=== PATIENT | male | born 1975 | race Caucasian/White ===

== ENCOUNTER 2016-10-16 12:25 | Emergency (ER) | payer BC ==
[~2016-10-16] VITALS: Ht 177.8 cm; Wt 93.2 kg
[2016-10-16 12:27] VITALS: BP 153/106; PULSE 93; TEMP 98.4
[2016-10-16] MEDS ORDERED: PRIL40 PO (12:43)
[2016-10-16 13:12] LABS: PH 5 (5-8); SQUAMOUS EPITHELIAL None Seen /hpf; URINE APPEARANCE Clear; URINE BACTERIA None Seen /hpf; URINE BILIRUBIN Negative (NEGATIVE); URINE BLOOD Negative (NEGATIVE); URINE COLOR Yellow; URINE GLUCOSE Negative (NEGATIVE); URINE KETONE Negative (NEGATIVE); URINE RBC 0-2 /hpf; URINE UROBILINOGEN Negative (NEGATIVE); URINE WBC 0-2 /hpf
[2016-10-16 13:23] LABS: BASO % 0.4 % (0.0-2.0); EOS # 0.1 (0.0-0.7); EOS % 1.2 % (0-4.0); GRAN # 7.3 (1.4-6.5); GRAN % 76.1 % (42.2-75.2); HEMATOCRIT 41.2 % (42.0-52.0); HEMOGLOBIN 14.1 g/dl (13.5-18.0); LYMPH # 1.2 (1.2-3.4); LYMPH % 12.6 % (20.0-51.0); MEAN CELL VOLUME 84 fl (80.0-100.0); MEAN CORPUSCULAR HEMOGLOBIN 29 pg (27.0-31.0); MEAN CORPUSCULAR HGB CONC 34 g/dl (33.0-37.0); MEAN PLATELET VOLUME 9.7 fl (7.4-10.4); MONO # 0.9 (0.1-0.6); MONO % 9.4 % (1.7-9.3); PLATELET COUNT 183 K/mm3 (130-400); RED BLOOD COUNT 4.91 M/mm3 (4.20-5.60); WHITE BLOOD COUNT 9.7 K/mm3 (4.8-10.8)
[2016-10-16 13:35] LABS: ADJUSTED CALCIUM 8.9 mg/dL (8.4-10.2); ALBUMIN 4.4 gm/dL (3.5-5.0); BILIRUBIN,TOTAL 1.1 mg/dL (0.0-1.0); C-REACTIVE PROTEIN 5.5 mg/dL (0.0-0.9); CALCIUM 9.2 mg/dL (8.4-10.2); CREATININE, serum 1.07 mg/dL (0.66-1.25); POTASSIUM 4.5 mmol/L (3.4-5.0); TOTAL PROTEIN 7.6 gm/dL (6.4-8.2)
[2016-10-16] MEDS ORDERED: VOLTAREN 75 DR75 MG PO (13:57)
[2016-10-16] MEDS ORDERED: CIPRO 500MG TA500 MG PO (13:57)
== END 2016-10-16 14:15 | disposition home or self-care (01) ==
LOC: COL.ER 12:25
PROVIDERS: Family Medicine
DX: N41.0 Acute prostatitis (principal); Z85.71 Personal history of Hodgkin lymphoma; K21.9 Gastro-esophageal reflux disease without esophagitis

== ENCOUNTER 2018-05-07 14:01 | Emergency (ER) | payer BC ==
[~2018-05-07] VITALS: Ht 177.8 cm; Wt 95.5 kg
[~2018-05-07 14:01] MED LIST: CIPRO 500MG TA500 MG PO; PRIL40 PO; VOLTAREN 75 DR75 MG PO
[2018-05-07 14:04] VITALS: TEMP 98.1
[2018-05-07 14:31] LABS: BASO % 0.1 % (0.0-2.0); EOS % 0.2 % (0-4.0); GRAN # 8.6 (1.4-6.5); GRAN % 91.9 % (42.2-75.2); HEMATOCRIT 48.7 % (42.0-52.0); HEMOGLOBIN 16.6 g/dl (13.5-18.0); LYMPH # 0.3 (1.2-3.4); LYMPH % 3.6 % (20.0-51.0); MEAN CELL VOLUME 82 fl (80.0-100.0); MEAN CORPUSCULAR HEMOGLOBIN 28 pg (27.0-31.0); MEAN CORPUSCULAR HGB CONC 34 g/dl (33.0-37.0); MEAN PLATELET VOLUME 10.2 fl (7.4-10.4); MONO # 0.4 (0.1-0.6); MONO % 3.8 % (1.7-9.3); PLATELET COUNT 268 K/mm3 (130-400); RED BLOOD COUNT 5.96 M/mm3 (4.20-5.60); REDCELL DISTRIBUTION WIDTH-CV 13.4 % (11.5-14.5)
[2018-05-07 14:43] LABS: ALBUMIN 4.9 gm/dL (3.5-5.0); BILIRUBIN,TOTAL 0.9 mg/dL (0.0-1.0); C-REACTIVE PROTEIN 3.5 mg/dL (0.0-0.9); CREATININE, serum 1.15 mg/dL (0.66-1.25); POTASSIUM 4.3 mmol/L (3.4-5.0); TOTAL PROTEIN 8.6 gm/dL (6.4-8.2)
[2018-05-07] MEDS ORDERED: ZOFRAN ODT4 MG PO (16:01)
[2018-05-07 16:26] VITALS: BP 140/82; PULSE 88
== END 2018-05-07 16:27 | disposition home or self-care (01) ==
LOC: COL.ER 14:01
PROVIDERS: Family Medicine
DX: K52.9 Noninfective gastroenteritis and colitis, unspecified (principal); K21.9 Gastro-esophageal reflux disease without esophagitis
CPT/HCPCS: C9113; J1885; J2405; J2765; J7030

== ENCOUNTER 2020-04-09 02:23 | Emergency (ER) | payer BC ==
[~2020-04-09] VITALS: Ht 177.8 cm; Wt 84.1 kg
[~2020-04-09 02:23] MED LIST changes: +ZOFRAN ODT4 MG PO
[2020-04-09 02:25] VITALS: TEMP 97.6
[2020-04-09 02:53] LABS: COLLECTION METHOD CLEAN CATCH
[2020-04-09] MEDS ORDERED: NORVASC 5MG5 MG/TAB PO (03:00)
[2020-04-09] MEDS ORDERED: PRILOSEC 20MG20 MG PO (03:00)
[2020-04-09] MEDS ORDERED: AMBIEN 5MG TABLE5 MG PO (03:00)
[2020-04-09 03:01] LABS: MUCOUS Present /lpf; PH 6 (5-8); SQUAMOUS EPITHELIAL 0-2 /hpf; URINE APPEARANCE Cloudy; URINE BACTERIA Rare /hpf; URINE BILIRUBIN Negative (NEGATIVE); URINE BLOOD 3+ (NEGATIVE); URINE COLOR Red; URINE GLUCOSE Negative (NEGATIVE); URINE KETONE Negative (NEGATIVE); URINE LEUKOCYTE ESTERASE Negative (NEGATIVE); URINE NITRATE Negative (NEGATIVE); URINE PROTEIN(semi-quant) 2+ (NEGATIVE); URINE RBC >50 /hpf; URINE UROBILINOGEN Negative (NEGATIVE)
[2020-04-09 04:06] VITALS: BP 147/93; PULSE 78
== END 2020-04-09 04:19 | disposition home or self-care (01) ==
LOC: COL.ER 02:23
PROVIDERS: Emergency Medicine
DX: C64.1 Malignant neoplasm of right kidney, except renal pelvis (principal); N13.8 Other obstructive and reflux uropathy; Z85.71 Personal history of Hodgkin lymphoma
CPT/HCPCS: A4314; J2270; J2550

== ENCOUNTER → 2020-07-26 | Outpatient (CLI) | payer BC ==
[~2020-07-26] MED LIST changes: +AMBIEN 5MG TABLE5 MG PO; +NORVASC 5MG5 MG/TAB PO; +PRILOSEC 20MG20 MG PO
== END ==
LOC: COL.VAS
DX: Z51.11 Encounter for antineoplastic chemotherapy (principal); C64.1 Malignant neoplasm of right kidney, except renal pelvis

== ENCOUNTER → 2022-07-02 | Outpatient (CLI) | payer BC | LOC: COL.RAD 11:22 | DX: R50.9 Fever, unspecified (principal); R51.9 Headache, unspecified; H57.89 Other specified disorders of eye and adnexa ==

== ENCOUNTER 2022-08-12 13:02 | Emergency (ER) | payer BC ==
[~2022-08-12] VITALS: Ht 177.8 cm; Wt 82.7 kg
[2022-08-12 13:19] VITALS: TEMP 98.7
[2022-08-12 15:11] LABS: BASO # 0.1 K/mm3 (0.0-0.2); BASO % 0.7 % (0.0-2.0); EOS # 0.2 K/mm3 (0.0-0.7); GRAN # 7.1 K/mm3 (1.4-6.5); GRAN % 82.4 % (42.2-75.2); HEMATOCRIT 38.7 % (42.0-52.0); HEMOGLOBIN 13.2 g/dl (13.5-18.0); LYMPH # 0.7 K/mm3 (1.2-3.4); LYMPH % 8.2 % (20.0-51.0); MEAN CELL VOLUME 84 fl (80.0-100.0); MEAN CORPUSCULAR HEMOGLOBIN 29 pg (27-31); MEAN CORPUSCULAR HGB CONC 34 g/dl (33.0-37.0); MEAN PLATELET VOLUME 9.2 fl (7.4-10.4); MONO # 0.6 K/mm3 (0.1-0.6); MONO % 6.4 % (1.7-9.3); PLATELET COUNT 287 K/mm3 (130-400); REDCELL DISTRIBUTION WIDTH-CV 14.2 % (11.5-14.5)
[2022-08-12 15:27] LABS: ALBUMIN 4.1 gm/dL (3.5-5.0); BILIRUBIN,TOTAL 0.4 mg/dL (0.2-1.2); CALCIUM 9.5 mg/dL (8.4-10.2); CREATININE, serum 1.35 mg/dL (0.72-1.25); POTASSIUM 4.3 mmol/L (3.5-4.5); TOTAL PROTEIN 8.1 gm/dL (6.2-8.1)
[2022-08-12 18:15] VITALS: BP 133/97; PULSE 92
== END 2022-08-12 18:15 | disposition home or self-care (01) ==
LOC: COL.ER 13:02
PROVIDERS: Physician Assistant
DX: G89.3 Neoplasm related pain (acute) (chronic) (principal); C64.2 Malignant neoplasm of left kidney, except renal pelvis; C79.51 Secondary malignant neoplasm of bone
CPT/HCPCS: J1170; J2060; J2270

== ENCOUNTER 2023-05-14 21:02 | Emergency (ER) | payer BC ==
[~2023-05-14] VITALS: Ht 177.8 cm; Wt 80.5 kg
[~2023-05-14 21:02] MED LIST changes: +ATIVAN 0.50.5 MG/TAB PO; +CELEBREX 200MG200 MG PO; +CREON 36000 PO; +DILAUDID 2MG TAB2 MG PO; +LYRICA 25MG CAP25 MG PO; +NORVASC 10MG10 MG PO; +OYSTER SHELL CA1 TA6 PO; -PRILOSEC 20MG20 MG PO; +SLOW-MAG71.5 MG PO; +SYNTHROID0.2 MG/TAB PO; +ZANAFLEX CAPSULE4 MG PO; +ZESTRIL 20MG TA20 MG PO
[2023-05-14 21:14] VITALS: TEMP 98.3
[2023-05-14 21:58] LABS: MEAN CELL VOLUME 94 fl (80.0-100.0); MEAN CORPUSCULAR HGB CONC 31 g/dl (33.0-37.0); MEAN PLATELET VOLUME 9.1 fl (7.4-10.4); PLATELET COUNT 292 K/mm3 (130-400); RED BLOOD COUNT 2.97 M/mm3 (4.20-5.60); REDCELL DISTRIBUTION WIDTH-CV 15.7 % (11.5-14.5)
[2023-05-14 22:10] LABS: ALANINE AMINOTRANSFERASE 57 U/L (0-55); ALBUMIN 2.4 gm/dL (3.5-5.0); ALKALINE PHOSPHATASE 425 U/L (40-150); ANION GAP 10 mmol/L (7-16); AST,SGOT 34 U/L (5-34); BILIRUBIN,TOTAL 0.5 mg/dL (0.2-1.2); BLOOD UREA NITROGEN 15 mg/dL (9-21); CALCIUM 9.3 mg/dL (8.4-10.2); CARBON DIOXIDE 20 mmol/L (22-29); CHLORIDE 105 mmol/L (98-107); CREATININE, serum 1.36 mg/dL (0.72-1.25); GLUCOSE 195 mg/dL (70-99); POTASSIUM 4.5 mmol/L (3.5-4.5); SODIUM 135 mmol/L (136-145); TOTAL PROTEIN 6.5 gm/dL (6.2-8.1)
[2023-05-14 22:16] LABS: HEMATOCRIT 27.8 % (42.0-52.0); HEMOGLOBIN 8.7 g/dl (13.5-18.0); MEAN CORPUSCULAR HEMOGLOBIN 29 pg (27-31)
[2023-05-14 22:23] LABS: TROPONIN-I < 0.010 ng/mL (0.00-0.033)
[2023-05-14 22:45] LABS: BAND 5 % (0-10); EOSINOPHIL 1 % (0-4); LYMPHOCYTE 8 % (20.0-51.0); METAMYELOCYTE 1 % (0-0); NEUTROPHILS 80 % (42.0-75.2)
[2023-05-14 22:46] LABS: PLATELET ESTIMATE NORMAL (NORMAL)
[2023-05-14 23:44] LABS: COLLECTION METHOD CLEAN CATCH
[2023-05-14 23:59] LABS: SQUAMOUS EPITHELIAL None Seen /hpf (0-10); URINE APPEARANCE Clear (CLEAR/HAZY); URINE BLOOD Negative (NEGATIVE); URINE COLOR Yellow (YELLOW); URINE GLUCOSE Negative (NEGATIVE); URINE KETONE Negative (NEGATIVE); URINE NITRATE Negative (NEGATIVE); URINE PROTEIN(semi-quant) Negative (NEGATIVE); URINE RBC None Seen /hpf (0-2); URINE UROBILINOGEN 0.2 E.U/dL (0.2-1.0)
[2023-05-15] LABS: URINE BACTERIA None Seen /hpf (NONE SEEN)
[2023-05-15] MEDS ORDERED: CYMBALTA 30MG30 MG PO (00:40)
[2023-05-15] MEDS ORDERED: FLOMAX 0.40.4 MG/CAP PO (00:40)
[2023-05-15] MEDS ORDERED: LEVAQUIN 750MG750 M1 PO (00:41)
[2023-05-15] MEDS ORDERED: XIIDRA1 EACH OP (00:48)
[2023-05-15] MEDS ORDERED: CABOMETYX40 MG PO (00:48)
[2023-05-15] MEDS ORDERED: ATIVAN 0.50.5 MG/TAB PO (00:49)
[2023-05-15] MEDS ORDERED: SENNA-S 50 MG-81 TAB PO (00:50)
[2023-05-15] MEDS ORDERED: ZYPREXA 5MG5 MG PO (00:50)
[2023-05-15] MEDS ORDERED: DILAUDID 2MG TAB2 MG PO (00:51)
[2023-05-15] MEDS ORDERED: PROCTOZONE-HC2.5% RC (00:54)
[2023-05-15] MEDS ORDERED: MIRALAX PA17 GM/Dose PO (00:58)
[2023-05-15] MEDS ORDERED: NYSTATIN POWDER30 GM TOP (00:58)
[2023-05-15] MEDS ORDERED: PRIL40 PO (00:58)
[2023-05-15] MEDS ORDERED: SLOW-MAG71.5 MG PO (00:59)
[2023-05-15] MEDS ORDERED: ZANAFLEX CAPSULE2 MG PO (01:00)
[2023-05-15 03:03] VITALS: BP 106/77; PULSE 112
== END 2023-05-15 03:03 | disposition home or self-care (01) ==
LOC: COL.ER 21:02
PROVIDERS: Emergency Medicine
DX: D64.9 Anemia, unspecified (principal); C64.9 Malignant neoplasm of unspecified kidney, except renal pelvis; Z79.61 Long term (current) use of immunomodulator
CPT/HCPCS: J2543; J3010; J7030; Q9967

== ENCOUNTER 2023-06-13 09:25 | Inpatient (IN) | payer BC ==
[2023-06-13] VITALS (419 sets, daily range): BP systolic 128; BP diastolic 79; PULSE 99; TEMP 97.7; O2SAT 79–100
[~2023-06-13] VITALS: Ht 177.8 cm; Wt 81.2 kg
[~2023-06-13 09:25] MED LIST changes: +CABOMETYX40 MG PO; +CYMBALTA 30MG30 MG PO; +FLOMAX 0.40.4 MG/CAP PO; +LEVAQUIN 750MG750 M1 PO; +MIRALAX PA17 GM/Dose PO; +NYSTATIN POWDER30 GM TOP; +PROCTOZONE-HC2.5% RC; +SENNA-S 50 MG-81 TAB PO; +XIIDRA1 EACH OP; +ZANAFLEX CAPSULE2 MG PO; +ZYPREXA 5MG5 MG PO
[2023-06-13] MEDS ORDERED: Heparin 5,000 UNITS/ML 1 ML VIAL SQ SCH (16:00)
--- NOTE | 2023-06-13 16:00 | NUR ---
Report received this morning from TRISTAN Tyson at [facility]. Patient arrived by EMS transport accompanied by the flight crew from [place]. Patient arrived to the unit alert and oriented, on oxygen running at 4 lpm via NS, and stable. Vital signs within normal limits. Patient had no fluids or meds running through his right upper arm PICC, which is a triple lumen that was placed at [facility]. Dr. Dumont notified of patient's arrival.
[2023-06-13 16:13] LABS: MEAN CELL VOLUME 84 fl (80.0-100.0); MEAN CORPUSCULAR HGB CONC 32 g/dl (33.0-37.0); MEAN PLATELET VOLUME 8.5 fl (7.4-10.4); PLATELET COUNT 438 K/mm3 (130-400); RED BLOOD COUNT 2.83 M/mm3 (4.20-5.60); REDCELL DISTRIBUTION WIDTH-CV 17.6 % (11.5-14.5)
[2023-06-13 16:16] LABS: HEMATOCRIT 23.8 % (42.0-52.0); HEMOGLOBIN 7.7 g/dl (13.5-18.0); MEAN CORPUSCULAR HEMOGLOBIN 27 pg (27-31)
[2023-06-13 16:20] LABS: INR 1.4 (0.8-3.0); PROTHROMBIN TIME 15.2 SECONDS (9.7-12.8)
[2023-06-13 16:35] LABS: ALBUMIN 2.1 gm/dL (3.5-5.0); BILIRUBIN,TOTAL 0.3 mg/dL (0.2-1.2); CALCIUM 8.7 mg/dL (8.4-10.2); CREATININE, serum 1.02 mg/dL (0.72-1.25); POTASSIUM 3.8 mmol/L (3.5-4.5); TOTAL PROTEIN 6.1 gm/dL (6.2-8.1)
[2023-06-13] MEDS ORDERED: HYDROmorphone 0.5 MG/0.5 ML SYRINGE IV PRN (16:45)
[2023-06-13] MEDS ORDERED: Insulin Aspart (NovoLOG) SQ SCH (16:57)
[2023-06-13] MEDS ORDERED: Cefepime 1 G in Water For Injection,Sterile 10 ML IV SCH (17:00)
[2023-06-13] MEDS ORDERED: Amiodarone 200 MG TAB PO SCH (17:30)
[2023-06-13] MEDS ORDERED: Glucagon 1 MG VIAL IM PRN (18:00)
[2023-06-13] MEDS ORDERED: Dextrose 50% Water 25 GM/50 ML SYRINGE IV PRN (18:00)
[2023-06-13] MEDS ORDERED: Dextrose (Glucose) 15 GM (4 x 3.75 GM) Chewable TABLET PACK PO PRN (18:00)
[2023-06-13] MEDS ORDERED: Albuterol/Ipratropium 3 MG-0.5 MG/3 ML Neb Soln IH PRN (19:15)
[2023-06-13] MEDS ORDERED: Albuterol/Ipratropium 3 MG-0.5 MG/3 ML Neb Soln IH SCH (20:00)
[2023-06-13] MEDS ORDERED: Methadone 10 MG TAB PO SCH (21:00)
[2023-06-13] MEDS ORDERED: OLANZapine 5 MG TAB PO SCH (21:55)
[2023-06-14] VITALS (236 sets, daily range): BP systolic 124–143; BP diastolic 75–90; PULSE 85–114; TEMP 97.4–98.2; O2SAT 89–98
[2023-06-14 05:35] LABS: MEAN CELL VOLUME 86 fl (80.0-100.0); MEAN CORPUSCULAR HGB CONC 31 g/dl (33.0-37.0); MEAN PLATELET VOLUME 8.9 fl (7.4-10.4); PLATELET COUNT 397 K/mm3 (130-400); RED BLOOD COUNT 2.78 M/mm3 (4.20-5.60); REDCELL DISTRIBUTION WIDTH-CV 17.9 % (11.5-14.5)
[2023-06-14 05:38] LABS: HEMATOCRIT 23.8 % (42.0-52.0); HEMOGLOBIN 7.3 g/dl (13.5-18.0); MEAN CORPUSCULAR HEMOGLOBIN 26 pg (27-31)
[2023-06-14 05:50] LABS: CALCIUM 9.2 mg/dL (8.4-10.2); CREATININE, serum 1.01 mg/dL (0.72-1.25); MAGNESIUM 2.2 mg/dL (1.6-2.6); PHOSPHOROUS 2.7 mg/dL (2.3-4.7); POTASSIUM 4.7 mmol/L (3.5-4.5)
[2023-06-14 06:24] LABS: ANISOCYTOSIS 2+; BAND 9 % (0-10); HYPOCHROMIA 1+; LYMPHOCYTE 2 % (20.0-51.0); NEUTROPHILS 85 % (42.0-75.2); PLATELET ESTIMATE NORMAL (NORMAL)
[2023-06-14] MEDS ORDERED: Hydrocortisone 2.5% Cream 28.35 GM TUBE TOP SCH (10:26)
[2023-06-14] MEDS ORDERED: Polyethylene Glycol 3350 17 GM PDS PO SCH (10:26)
[2023-06-14] MEDS ORDERED: Nystatin Powder **** subs to Miconazole Powder TOP SCH (10:26)
[2023-06-14] MEDS ORDERED: Sennosides/Docusate 8.6-50 MG TAB PO SCH (10:27)
[2023-06-14] MEDS ORDERED: Calcium Carb/Vit D3 500 mg-200 Units TAB PO SCH (10:28)
[2023-06-14] MEDS ORDERED: DULoxetine 30 MG CAP PO SCH (10:28)
[2023-06-14] MEDS ORDERED: Omeprazole 40 MG **** subs to Pantoprazole 40 MG PO SCH (10:29)
[2023-06-14] MEDS ORDERED: LORazepam 0.5 MG TAB PO PRN (10:30)
[2023-06-14] MEDS ORDERED: Albuterol/Ipratropium 3 MG-0.5 MG/3 ML Neb Soln IH PRN (10:45)
[2023-06-14] MEDS ORDERED: Miconazole 2% Topical Powder BOTTLE TP SCH (11:00)
[2023-06-14] MEDS ORDERED: fentaNYL 12 MCG 72 HR PATCH TD SCH (11:00)
--- NOTE | 2023-06-14 11:26 | NUR ---
adz worker met with pt daughter, and son at bedside to discuss discharge planning. Pt reports he lives in [place] with his , Brendan/DPOA- [phone]. Pt states his can bring in a copy of the DPOA from home. Pt confirms he sees Dr. Sloan [facility]. Pt reports prior to the recent hospitalizations, he was independent with ADLS and uses home oxygen. He was unsure of the oxygen company, but thinks it is [facility]. Pt states he would be agreeable to reccomendations of rehab. He reports he has used [facility] in the past, but did not get seen often by them due to medical changes. Discharge Plan: tbd
[2023-06-14] MEDS ORDERED: Pancrelipase DR CAP (10,500 Units Lipase) PO SCH (12:00)
--- NOTE | 2023-06-14 12:30 | NUR ---
Patient transfered to the medical floor via wheelchair. Alert and oriented and in no distress upon arrival. Met with BRAZING MACHINE TENDER in room and notified receiving RN of arrival. Call light left within reach.
[2023-06-14] MEDS ORDERED: Albuterol/Ipratropium 3 MG-0.5 MG/3 ML Neb Soln IH SCH (13:00)
[2023-06-14] MEDS ORDERED: Pancrelipase DR CAP (10,500 Units Lipase) PO ONE (20:45)
[2023-06-14] MEDS ORDERED: tiZANidine 4 MG TAB PO SCH (21:00)
[2023-06-15] VITALS (13 sets, daily range): BP systolic 105–159; BP diastolic 63–91; PULSE 81–121; TEMP 97.5–99.2
--- NOTE | 2023-06-15 00:36 | NUR ---
patient lying in bed alert and oriented x4. pt denies chest pain and shortness of breath. reports pain in the mid back rated as 5/10, per request diluadid given. TEODORO Villasenor notified about pt concern for not getting pancreaze dose for dinner time, a one time now dose order given per verbal phone readback. pt o2 sats measuring around 87 to 88%, o2 placed at 3.5L, sats measuring around 92%. pt has no further needs, questions, or concerns at this time. pt occasionally confused when awoken, reoriented to place and situation as needed. call light within reach. will continue to monitor.
[2023-06-15 07:55] LABS: BASO % 0.2 % (0.0-2.0); GRAN # 13.9 K/mm3 (1.4-6.5); GRAN % 89.6 % (42.2-75.2); LYMPH # 0.3 K/mm3 (1.2-3.4); LYMPH % 1.9 % (20.0-51.0); MEAN CELL VOLUME 89 fl (80.0-100.0); MEAN CORPUSCULAR HGB CONC 29 g/dl (33.0-37.0); MEAN PLATELET VOLUME 9.4 fl (7.4-10.4); MONO # 1.1 K/mm3 (0.1-0.6); PLATELET COUNT 406 K/mm3 (130-400); RED BLOOD COUNT 2.73 M/mm3 (4.20-5.60); REDCELL DISTRIBUTION WIDTH-CV 18.6 % (11.5-14.5)
[2023-06-15 07:58] LABS: HEMATOCRIT 24.3 % (42.0-52.0); HEMOGLOBIN 7.1 g/dl (13.5-18.0); MEAN CORPUSCULAR HEMOGLOBIN 26 pg (27-31)
[2023-06-15 08:17] LABS: ALBUMIN 1.9 gm/dL (3.5-5.0); CREATININE, serum 1.03 mg/dL (0.72-1.25); PHOSPHOROUS 3.1 mg/dL (2.3-4.7); POTASSIUM 3.9 mmol/L (3.5-4.5)
--- NOTE | 2023-06-15 10:00 | NUR ---
PER PATIENT NO PAIN MEDICATION NEEDED AT THIS TIME. FALL PRECAUTIONS IN PLACE. CALL LIGHT WITHIN REACH. 7 FAMILY MEMBERS AT BEDSIDE.
--- NOTE | 2023-06-15 10:30 | NUR ---
2 PHYSICIANS AT BEDSIDE.
--- NOTE | 2023-06-15 10:55 | NUR ---
PER MD PATIENT WOULD LIKE TO SPEAK WITH SW REGARDING POSSIBLE PLACEMENT TO [place] AT [facility]. VM LEFT FOR SW.
--- NOTE | 2023-06-15 11:03 | NUR ---
PATIENT DENIES ANY NEEDS FOR PAIN MEDICATION AT THIS TIME. PATIENTS CALL LIGHT WITHIN REACH. FALL PRECAUTIONS IN PLACE. MANY FAMILY MEMBERS/FRIENDS AT BEDSIDE.
[2023-06-15] MEDS ORDERED: oxyCODONE 5 MG TAB PO PRN (11:30)
--- NOTE | 2023-06-15 11:30 | NUR ---
MD INFORMED PATIENT STATED HE WOULD LIKE TO BE MORE AWAKE. PAIN MANAGMENT DISCUSSED AND PATIENT OPEN TO TRYING ORAL PAIN MEDICATION WITH [facility] FOR PAIN MANAGEMENT. MD TO ADDRESS.
[2023-06-15] MEDS ORDERED: fentaNYL 25 MCG 72 HR PATCH TD SCH (12:00)
[2023-06-15] MEDS ORDERED: fentaNYL Patch Removal/Drugbuster TD SCH (12:00)
--- NOTE | 2023-06-15 12:00 | NUR ---
PATIENT TO CALL WHEN LUNCH ARRIVES FOR MEDICATION
--- NOTE | 2023-06-15 13:30 | NUR ---
PATIENT DENIES ANY NEEDS OR COMPLAINTS AT THIS TIME . CALL LIGHT WITHIN REACH. , FALL PRECAUTINOS IN PLACE.
--- NOTE | 2023-06-15 14:32 | NUR ---
FRONT WHEELED WALKER/WHEELCHAIR SCRIPT AND FORMS FAXED TO [facility].
--- NOTE | 2023-06-15 14:55 | NUR ---
SW visited with patient; spouse present & permitted by patient to remain in room during meeting. ( Brendan Edgar [phone]) SW dicussed with patient and spouse about recent deny for IPR with [facility] and alternative options for care. Patient and shared that they previously used [facility] and would be open to having HH with PT. shared that she works from home and is available, if medically clear for this level of care. Patient reports satisfaction with [facility] services and would like to be referred for care with them. SW will update nurse and Dr. D/C plan: (pending) HH referral with [facility] pending further medical recommenddations.
--- NOTE | 2023-06-15 15:03 | NUR ---
AASHISH sent referral packet over to [facility] for HH services. Nurse informed AASHISH that walker would be required at discharge and she forward request and documentation to [facility] medical supplies.
[2023-06-15] MEDS ORDERED: predniSONE 50 MG TAB PO SCH (17:00)
[2023-06-15] MEDS ORDERED: Patient's Own Medication Item PO SCH (21:00)
--- NOTE | 2023-06-15 21:50 | NUR ---
patient lying in bed. alert and oriented x4 with at bedside. pt denies chest pain and reports shortness of breath with exertion only. pt reports pain rated 7/10 between the shoulder blades and mid back, roxicodone given per request. PICC in [place] is patent, site is clean dry and intact. left chest fentanyl patch noted. pt has no further needs, questions, or concerns at this time. call light within reach, will continue to monitor.
[2023-06-16] VITALS (8 sets, daily range): BP systolic 114–129; BP diastolic 68–76; PULSE 78–96; TEMP 97.6–97.9
[2023-06-16 06:40] LABS: BASO % 0.2 % (0.0-2.0); GRAN # 10.7 K/mm3 (1.4-6.5); GRAN % 88.9 % (42.2-75.2); LYMPH # 0.4 K/mm3 (1.2-3.4); LYMPH % 3.7 % (20.0-51.0); MEAN CELL VOLUME 87 fl (80.0-100.0); MEAN CORPUSCULAR HGB CONC 31 g/dl (33.0-37.0); MEAN PLATELET VOLUME 9.8 fl (7.4-10.4); MONO # 0.7 K/mm3 (0.1-0.6); MONO % 6.2 % (1.7-9.3); PLATELET COUNT 331 K/mm3 (130-400); RED BLOOD COUNT 2.61 M/mm3 (4.20-5.60); REDCELL DISTRIBUTION WIDTH-CV 18.4 % (11.5-14.5)
[2023-06-16 06:46] LABS: HEMATOCRIT 22.6 % (42.0-52.0); HEMOGLOBIN 6.9 g/dl (13.5-18.0); MEAN CORPUSCULAR HEMOGLOBIN 26 pg (27-31)
[2023-06-16 07:00] LABS: ALBUMIN 1.8 gm/dL (3.5-5.0); CALCIUM 8.8 mg/dL (8.4-10.2); CREATININE, serum 1.18 mg/dL (0.72-1.25); MAGNESIUM 2.1 mg/dL (1.6-2.6); PHOSPHOROUS 3.5 mg/dL (2.3-4.7); POTASSIUM 4.2 mmol/L (3.5-4.5)
[2023-06-16] MEDS ORDERED: Hydrocortisone 2.5% Cream 28.35 GM TUBE TOP PRN (08:45)
[2023-06-16] MEDS ORDERED: Miconazole 2% Topical Powder BOTTLE TP PRN (08:45)
[2023-06-16] MEDS ORDERED: Fludrocortisone 0.1 MG TAB PO SCH (09:00)
[2023-06-16] MEDS ORDERED: PACERONE400 MG PO (12:12)
[2023-06-16] MEDS ORDERED: MAXIPIMEIVSOL IV (12:13)
[2023-06-16] MEDS ORDERED: SOLU-CORTE100 MG/VIA IV (12:15)
[2023-06-16] MEDS ORDERED: LANTUS100 U/ML SQ (12:16)
[2023-06-16] MEDS ORDERED: HUMULIN R 10100 U/ML SQ (12:17)
[2023-06-16] MEDS ORDERED: LENVIMA18 MG PO (12:18)
[2023-06-16] MEDS ORDERED: LOPRESSOR 225 MG/TAB PO (12:22)
[2023-06-16] MEDS ORDERED: DOLOPHINE HCL5 MG PO (12:22)
[2023-06-16] MEDS ORDERED: ZYPREXA10 MG PO (12:23)
[2023-06-16] MEDS ORDERED: ZYPREXA2.5 MG PO ×2 (12:24→12:32)
[2023-06-16] MEDS ORDERED: CREON 36000 PO (12:25)
[2023-06-16] MEDS ORDERED: PROTONIX 40MG T40 MG PO (12:26)
[2023-06-16] MEDS ORDERED: LOKELMA5 GM PO (12:27)
[2023-06-16] MEDS ORDERED: THIAMINE I200 MG/2 M IJ (12:29)
[2023-06-16] MEDS ORDERED: DILAUDID-51 MG/M1 IV (12:30)
[2023-06-16] MEDS ORDERED: DILAUDID 4MG TAB4 MG PO (12:31)
[2023-06-16] MEDS ORDERED: LEADER CLE17 GM/Dose PO (12:33)
[2023-06-16] MEDS ORDERED: ZOFRAN INJ4 MG/2 ML IV (12:35)
[2023-06-16] MEDS ORDERED: [UNRECOGNIZED DRUG - CODE] IV (12:36)
[2023-06-16] MEDS ORDERED: OMNICEF 300MG300 MG PO (13:40)
[2023-06-16] MEDS ORDERED: ZANAFLEX 4MG TAB4 MG PO (13:41)
[2023-06-16] MEDS ORDERED: ROXICODONE 55 MG/TAB PO (13:45)
[2023-06-16] MEDS ORDERED: FLORINEF ACETA0.1 MG PO (13:48)
[2023-06-16] MEDS ORDERED: PREDNISONE50 MG PO (13:48)
[2023-06-16] MEDS ORDERED: FENTANYL 25 MCG TD (13:51)
[2023-06-16] MEDS ORDERED: PACERONE200 MG PO (13:51)
--- NOTE | 2023-06-16 16:05 | NUR ---
Crusher Setter followed up with [facility] and was advised they can accept referral. AASHISH then followed up with [facility] to secure DME. Patient would like to obtain the walker today, but is going to shop around some for a transport chair. Patient's is at bedside and agreeable to this plan. Patient's friend to cotton picking machine operator walker this afternoon. AASHISH faxed discharge orders to Karen at [facility]. Karen advised they would need orders for PICC cares, which AASHISH does not have as patient's PICC was not placed here. AASHISH contacted the Case Management Department at [facility] and left a message. Patient advised he worked with Norma COLLINS while admitted there. AASHISH spoke with Karen about this and will follow up once there is a response from [facility].
== END 2023-06-16 18:12 | disposition home health service (06) | DRG 180 ==
LOC: ICU 09:25 → MEDICAL 06-14 13:53
PROVIDERS: ADMIT Internal Medicine
DX: C34.92 Malignant neoplasm of unspecified part of left bronchus or lung (principal); J18.9 Pneumonia, unspecified organism; J96.01 Acute respiratory failure with hypoxia; C64.9 Malignant neoplasm of unspecified kidney, except renal pelvis; E87.1 Hypo-osmolality and hyponatremia; C34.91 Malignant neoplasm of unspecified part of right bronchus or lung; D69.6 Thrombocytopenia, unspecified; D64.9 Anemia, unspecified; I48.91 Unspecified atrial fibrillation; N18.9 Chronic kidney disease, unspecified; E11.9 Type 2 diabetes mellitus without complications; Z79.4 Long term (current) use of insulin; F32.A Depression, unspecified; F41.9 Anxiety disorder, unspecified; K21.9 Gastro-esophageal reflux disease without esophagitis; E03.9 Hypothyroidism, unspecified; Z66 Do not resuscitate
CPT/HCPCS: J0692; J1170; J1644; J1720; J1815; J7512

== ENCOUNTER 2023-07-01 16:20 | Inpatient (IN) | payer BC ==
[~2023-07-01] VITALS: Ht 177.8 cm; Wt 77.1 kg
[~2023-07-01 16:20] MED LIST changes: +DILAUDID 4MG TAB4 MG PO; +DILAUDID-51 MG/M1 IV; +DOLOPHINE HCL5 MG PO; +FENTANYL 25 MCG TD; +FLORINEF ACETA0.1 MG PO; +HUMULIN R 10100 U/ML SQ; +KEYTRUDA25 MG/ML IV; +LANTUS100 U/ML SQ; +LEADER CLE17 GM/Dose PO; +LENVIMA PO; +LOKELMA5 GM PO; +LOPRESSOR 225 MG/TAB PO; +MAXIPIMEIVSOL IV; +OMNICEF 300MG300 MG PO; +PACERONE200 MG PO; +PACERONE400 MG PO; +PREDNISONE50 MG PO; +PROTONIX 40MG T40 MG PO; +ROXICODONE 55 MG/TAB PO; +SOLU-CORTE100 MG/VIA IV; +THIAMINE I200 MG/2 M IJ; +ZANAFLEX 4MG TAB4 MG PO; +ZOFRAN INJ4 MG/2 ML IV; +ZYPREXA10 MG PO; +ZYPREXA2.5 MG PO; +[UNRECOGNIZED DRUG - CODE] IV
[2023-07-01] MEDS ORDERED: NS 1,000 ML IV ONE ×4 (17:15→21:30)
[2023-07-01 18:16] LABS: MEAN CELL VOLUME 84 fl (80.0-100.0); MEAN CORPUSCULAR HGB CONC 30 g/dl (33.0-37.0); MEAN PLATELET VOLUME 9.6 fl (7.4-10.4); RED BLOOD COUNT 3.55 M/mm3 (4.20-5.60); REDCELL DISTRIBUTION WIDTH-CV 18.8 % (11.5-14.5)
[2023-07-01 18:24] LABS: HEMATOCRIT 29.9 % (42.0-52.0); HEMOGLOBIN 9.1 g/dl (13.5-18.0); MEAN CORPUSCULAR HEMOGLOBIN 26 pg (27-31); PLATELET COUNT 302 K/mm3 (130-400)
[2023-07-01] MEDS ORDERED: HYDROmorphone 0.5 MG/0.5 ML SYRINGE IV ONE ×2 (18:30→20:00)
[2023-07-01 18:32] LABS: INR 1.1 (0.8-3.0); PROTHROMBIN TIME 12.2 SECONDS (9.7-12.8)
[2023-07-01 18:37] LABS: ALANINE AMINOTRANSFERASE 12 U/L (0-55); ALBUMIN 1.7 gm/dL (3.5-5.0); ALKALINE PHOSPHATASE 155 U/L (40-150); ANION GAP 19 mmol/L (7-16); AST,SGOT 21 U/L (5-34); BILIRUBIN,TOTAL 0.4 mg/dL (0.2-1.2); BLOOD UREA NITROGEN 77 mg/dL (9-21); C-REACTIVE PROTEIN 30.41 mg/dL (0.00-0.50); CALCIUM 8.3 mg/dL (8.4-10.2); CARBON DIOXIDE 19 mmol/L (22-29); CHLORIDE 93 mmol/L (98-107); CREATININE, serum 4.45 mg/dL (0.72-1.25); GLUCOSE 170 mg/dL (70-99); POTASSIUM 4.6 mmol/L (3.5-4.5); SODIUM 131 mmol/L (136-145); TOTAL PROTEIN 5.8 gm/dL (6.2-8.1)
[2023-07-01 18:49] LABS: TROPONIN-I < 0.010 ng/mL (0.00-0.033)
[2023-07-01 19:13] LABS: COLLECTION METHOD CLEAN CATCH
[2023-07-01 19:29] LABS: URINE APPEARANCE TURBID (CLEAR/HAZY); URINE BLOOD NEGATIVE (NEGATIVE); URINE COLOR Dark Yellow (YELLOW); URINE GLUCOSE NEGATIVE (NEGATIVE); URINE KETONE TRACE (NEGATIVE); URINE NITRATE NEGATIVE (NEGATIVE); URINE PROTEIN(semi-quant) TRACE (NEGATIVE)
[2023-07-01 19:33] LABS: BAND 6 % (0-10); LYMPHOCYTE 3 % (20.0-51.0); METAMYELOCYTE 2 % (0-0); NEUTROPHILS 87 % (42.0-75.2)
[2023-07-01 19:35] LABS: ANISOCYTOSIS 1+; BURR CELLS 3+; HYPOCHROMIA 2+
[2023-07-01 20:31] LABS: MUCOUS PRESENT (NOT PRESENT); SQUAMOUS EPITHELIAL 0-2 /hpf (0-10); URINE BACTERIA MANY /hpf (NONE SEEN); URINE RBC 0-2 /hpf (0-2)
[2023-07-01 20:41] LABS: CLOSTRIDIUM DIFF A/B POS
[2023-07-01] MEDS ORDERED: NS 500 ML IV ONE (21:30)
[2023-07-01] MEDS ORDERED: Albumin (Human) 100 ML IV ONE (21:30)
[2023-07-01] MEDS ORDERED: HYDROmorphone 0.5 MG/0.5 ML SYRINGE IV PRN (21:45)
[2023-07-01] MEDS ORDERED: Ondansetron 4 MG/2 ML VIAL IV PRN (21:45)
[2023-07-01] MEDS ORDERED: oxyCODONE 5 MG TAB PO PRN (21:45)
[2023-07-01] MEDS ORDERED: NS 1,000 ML IV SCH (21:45)
[2023-07-01] MEDS ORDERED: Dextrose (Glucose) 15 GM (4 x 3.75 GM) Chewable TABLET PACK PO PRN (22:00)
[2023-07-01] MEDS ORDERED: Glucagon 1 MG VIAL IM PRN (22:00)
[2023-07-01] MEDS ORDERED: Acetaminophen 325 MG TAB PO PRN (22:00)
[2023-07-01] MEDS ORDERED: Insulin Aspart (NovoLOG) SQ SCH (22:00)
[2023-07-01] MEDS ORDERED: Dextrose 50% Water 25 GM/50 ML SYRINGE IV PRN (22:00)
[2023-07-01] MEDS ORDERED: Albuterol/Ipratropium 3 MG-0.5 MG/3 ML Neb Soln IH PRN (22:00)
[2023-07-02] VITALS (795 sets, daily range): BP systolic 89–124; BP diastolic 49–74; PULSE 84–92; TEMP 97.2–98.1; O2SAT 74–100
[2023-07-02] MEDS ORDERED: Vancomycin 125 MG CAP PO SCH
[2023-07-02 06:30] LABS: MEAN CELL VOLUME 82 fl (80.0-100.0); MEAN CORPUSCULAR HGB CONC 30 g/dl (33.0-37.0); PLATELET COUNT 334 K/mm3 (130-400); RED BLOOD COUNT 3.56 M/mm3 (4.20-5.60); REDCELL DISTRIBUTION WIDTH-CV 18.8 % (11.5-14.5)
[2023-07-02 06:36] LABS: HEMATOCRIT 29.3 % (42.0-52.0); HEMOGLOBIN 8.9 g/dl (13.5-18.0); MEAN CORPUSCULAR HEMOGLOBIN 25 pg (27-31)
[2023-07-02 06:56] LABS: BILIRUBIN,TOTAL 0.4 mg/dL (0.2-1.2); CALCIUM 7.9 mg/dL (8.4-10.2); CREATININE, serum 4.15 mg/dL (0.72-1.25); MAGNESIUM 2.3 mg/dL (1.6-2.6); PHOSPHOROUS 6.5 mg/dL (2.3-4.7); POTASSIUM 4.3 mmol/L (3.5-4.5); TOTAL PROTEIN 5.5 gm/dL (6.2-8.1)
[2023-07-02] MEDS ORDERED: Heparin 5,000 UNITS/ML 1 ML VIAL SQ SCH (09:00)
--- NOTE | 2023-07-02 09:35 | NUR ---
PT ADMITTED FOR C-DIFF, HYPOTENSION. REMAINS AT BEDSIDE. PT STARTED ON LEVOPHED UPON ADMISSION. RESPIRATIONS EVEN AND NONLABORED. NO SIGN OF DISTRES AT THIS TIME.
--- NOTE | 2023-07-02 10:12 | NUR ---
Flour Blender met with patient and his , Brendan (ph#[phone]) to complete initial intake. Patient lives in [place] with his and sees Dr. Sloan for primary care. Patient advised he had a telehealth appointment with Dr. Sloan earlier this week. Patient's Oncology team is at [facility] in [place], however he also sees Dr. Alvares for local care coordination. Patient is scheduled to go to [facility] early next week but is not sure he will make it there due to this hospitalization. Patient has home oxygen through [facility] as well as a walker and transport chair. Patient advised he is normally independent with ADLS and hasn't needed to use the walker most recently. Brendan advised she is patient's DPOA-HC and that she can bring in a copy to the hospital next time she comes in. SW will continue to follow for discharge planning needs and recommendations.
[2023-07-02] MEDS ORDERED: NS 1,000 ML IV ONE (10:45)
[2023-07-02] MEDS ORDERED: CORDARONE200 MG/TAB PO (11:05)
[2023-07-02] MEDS ORDERED: fentaNYL 25 MCG 72 HR PATCH TD SCH (11:30)
[2023-07-02] MEDS ORDERED: Amiodarone 200 MG TAB PO SCH (11:30)
[2023-07-02] MEDS ORDERED: Fludrocortisone 0.1 MG TAB PO SCH (11:30)
[2023-07-02] MEDS ORDERED: Methadone 10 MG TAB PO SCH (11:30)
[2023-07-02] MEDS ORDERED: DULoxetine 30 MG CAP PO SCH (11:30)
[2023-07-02] MEDS ORDERED: fentaNYL Patch Removal/Drugbuster TD SCH (11:30)
[2023-07-02] MEDS ORDERED: Pancrelipase DR CAP (10,500 Units Lipase) PO SCH (12:00)
[2023-07-02] MEDS ORDERED: Hydrocortisone 10 MG TAB PO SCH (17:00)
[2023-07-02] MEDS ORDERED: predniSONE 50 MG TAB PO SCH (17:00)
--- NOTE | 2023-07-02 17:51 | NUR ---
PATIENT HAS HAD SOFT BLOOD PRESSURES THROUGHOUT THE NIGHT AND WAS ON LEVOPHED. AT THIS TIME HE HAS BEEN OFF LEVOPHED SINCE 1205. BLOOD PRESSURES HAVE REMAINED SIMILAR, 100-110'S SYSTOLIC. HE HAS HAD 3 STOOL/URINE EPISODES TODAY.
--- NOTE | 2023-07-02 17:56 | NUR ---
PATIENT STOOL HAS BEEN A MIX OF URINE AND STOOL. UNMEASURED.
[2023-07-02] MEDS ORDERED: OLANZapine 5 MG TAB PO SCH (21:00)
[2023-07-02] MEDS ORDERED: tiZANidine 4 MG TAB PO SCH (22:01)
[2023-07-03] VITALS (989 sets, daily range): BP systolic 75–105; BP diastolic 41–66; PULSE 72–112; TEMP 96.9–98.4; O2SAT 56–100
[2023-07-03 06:29] LABS: CALCIUM 7.5 mg/dL (8.4-10.2); CREATININE, serum 3.54 mg/dL (0.72-1.25); POTASSIUM 4.2 mmol/L (3.5-4.5)
--- NOTE | 2023-07-03 07:00 | NUR ---
Report received from TRISTAN Warner; patient currently resting in bed; lab is bedside trying to draw for morning labs. Patient is on levo and fluids which are running through his peripheral IV. Patient is on 2L of O2 via NC and vital signs are within normal limits this morning.
[2023-07-03] MEDS ORDERED: NS 1,000 ML IV ONE (07:45)
[2023-07-03 07:53] LABS: MEAN CELL VOLUME 83 fl (80.0-100.0); MEAN CORPUSCULAR HGB CONC 30 g/dl (33.0-37.0); MEAN PLATELET VOLUME 9.7 fl (7.4-10.4); PLATELET COUNT 334 K/mm3 (130-400); RED BLOOD COUNT 3.43 M/mm3 (4.20-5.60)
[2023-07-03 08:29] LABS: HEMATOCRIT 28.6 % (42.0-52.0); HEMOGLOBIN 8.6 g/dl (13.5-18.0); MEAN CORPUSCULAR HEMOGLOBIN 25 pg (27-31)
[2023-07-03 08:41] LABS: BAND 4 % (0-10); LYMPHOCYTE 1 % (20.0-51.0); NEUTROPHILS 94 % (42.0-75.2); TOXIC GRANULATION PRESENT
[2023-07-03 08:43] LABS: ANISOCYTOSIS 2+; HYPOCHROMIA 3+; PLATELET ESTIMATE NORMAL (NORMAL)
[2023-07-03 08:44] LABS: BURR CELLS 1+; SCHISTOCYTES 1+
[2023-07-03] MEDS ORDERED: Fludrocortisone 0.1 MG TAB PO SCH (09:00)
[2023-07-03] MEDS ORDERED: Sodium Bicarbonate 650 MG TAB PO SCH (10:00)
[2023-07-03] MEDS ORDERED: OLANZapine 5 MG TAB PO PRN (10:30)
--- NOTE | 2023-07-03 10:56 | NUR ---
Bread Distributor contacted Karen at [facility] and faxed clinical updates.
--- NOTE | 2023-07-03 17:30 | NUR ---
Patient had no urine output today; bladder scanned patient and he had 370 mL in his bladder. Discussed putting in Romero catheter if he's unable to go; patient not agreeable to Romero at this time. Dr. Westfall notified and she was not concerned at this time; will continue to monitor and revisit options if patient continues to retain urine.
--- NOTE | 2023-07-03 18:30 | NUR ---
Patient restarted on levophed this afternoon; patient's dose was restarted at the previous dose, 0.04 mcg/kg/min and then titrated accordingly.
--- NOTE | 2023-07-03 19:30 | NUR ---
Received report from TRISTAN Meza. Pt is alert and resting in bed with call light within reach. Pt's spouse is at bedside at this time. Pt has NS and Levophed running at this time. Pt's vitals are stable at this time while on 2.5 L O2 via NC. Pt does not look in distress at this time. Will continue with pt care.
[2023-07-04] VITALS (1167 sets, daily range): BP systolic 76–111; BP diastolic 45–71; PULSE 86–104; TEMP 97–98.1; O2SAT 79–100
[2023-07-04 06:18] LABS: MEAN CELL VOLUME 81 fl (80.0-100.0); MEAN CORPUSCULAR HGB CONC 31 g/dl (33.0-37.0); MEAN PLATELET VOLUME 9.3 fl (7.4-10.4); RED BLOOD COUNT 3.04 M/mm3 (4.20-5.60); REDCELL DISTRIBUTION WIDTH-CV 19.1 % (11.5-14.5)
[2023-07-04 06:30] LABS: HEMATOCRIT 24.7 % (42.0-52.0); HEMOGLOBIN 7.7 g/dl (13.5-18.0); MEAN CORPUSCULAR HEMOGLOBIN 25 pg (27-31)
[2023-07-04 06:31] LABS: PLATELET COUNT 231 K/mm3 (130-400)
[2023-07-04 06:36] LABS: CALCIUM 7.8 mg/dL (8.4-10.2); CREATININE, serum 3.6 mg/dL (0.72-1.25); POTASSIUM 4.1 mmol/L (3.5-4.5)
--- NOTE | 2023-07-04 06:37 | NUR ---
Pt had an uneventful night. Pt's vitals were stable throughout the night with levophed on and 2L 02 via NC. Pt also has fluids running. Pt had low urine output. Pt had 2 bowel movements throughout the night. Pt is alert and oriented. Pt was able to get some sleep throughout the night. Pt had some pain and pain meds were given per EMAR. Pt is currently resting in bed with the call light within reach. Will give report to day shift nurse.
--- NOTE | 2023-07-04 06:51 | NUR ---
Will pass on critical CO2 lab to day shift.
--- NOTE | 2023-07-04 07:00 | NUR ---
REPORT RECEIVED FROM TRISTAN ZAYAS. PT RESTING IN BED, VSS ON 2L PER NC. FLUIDS AND LEVO INFUSING ORDERED TO PERIPHERAL IV IN L AC. PT IS ALERT AND ORIENTED, CALL LIGHT IN REACH.
[2023-07-04 07:16] LABS: LYMPHOCYTE 1 % (20.0-51.0)
[2023-07-04 07:18] LABS: BAND 15 % (0-10)
[2023-07-04 07:19] LABS: ANISOCYTOSIS 1+; NEUTROPHILS 81 % (42.0-75.2); PLATELET ESTIMATE NORMAL (NORMAL)
[2023-07-04 07:20] LABS: HYPOCHROMIA 3+
[2023-07-04 08:21] LABS: PATHOLOGY DIFF REVIEW OK
[2023-07-04] MEDS ORDERED: fentaNYL 50 MCG/ML 2 ML VIAL IV PRN (10:00)
--- NOTE | 2023-07-04 15:56 | NUR ---
Dog Handler Or Trainer met with patient and his to check in before the weekend. They have no questions or concerns at this time.
[2023-07-05] VITALS (1342 sets, daily range): BP systolic 81–116; BP diastolic 38–73; PULSE 84–112; TEMP 98–99.7; O2SAT 78–100
[2023-07-05] MEDS ORDERED: NS 500 ML IV ONE (02:15)
--- NOTE | 2023-07-05 07:00 | NUR ---
REPORT RECEIVED FROM TRISTAN ALBERT. PT RESTING IN BED, VSS ON 2L O2 PER NC. LEVO INFUSING ORDERED. PT DENIES NEEDS AT THIS TIME, CALL LIGHT IN REACH.
[2023-07-05 07:44] LABS: MEAN CELL VOLUME 81 fl (80.0-100.0); MEAN CORPUSCULAR HGB CONC 32 g/dl (33.0-37.0); MEAN PLATELET VOLUME 10.4 fl (7.4-10.4); PLATELET COUNT 162 K/mm3 (130-400); RED BLOOD COUNT 2.86 M/mm3 (4.20-5.60); REDCELL DISTRIBUTION WIDTH-CV 19.2 % (11.5-14.5)
[2023-07-05 07:54] LABS: HEMATOCRIT 23.1 % (42.0-52.0); HEMOGLOBIN 7.3 g/dl (13.5-18.0); MEAN CORPUSCULAR HEMOGLOBIN 26 pg (27-31)
[2023-07-05 08:01] LABS: ANISOCYTOSIS 2+; BAND 39 % (0-10); EOSINOPHIL 4 % (0-4); LYMPHOCYTE 2 % (20.0-51.0); NEUTROPHILS 54 % (42.0-75.2); PLATELET ESTIMATE NORMAL (NORMAL)
[2023-07-05 08:03] LABS: CALCIUM 7.8 mg/dL (8.4-10.2); CREATININE, serum 3.75 mg/dL (0.72-1.25); POTASSIUM 4.4 mmol/L (3.5-4.5)
[2023-07-05 11:27] LABS: ARTERIAL BLD GAS TCO2 CT 18.1; ARTERIAL BLOOD GAS BASE EXCESS -7.7 (-2-2); ARTERIAL BLOOD GAS HCO3 17.1 meq/L (22-26); ARTERIAL BLOOD GAS PCO2 31.9 mmHg (35-45); ARTERIAL BLOOD GAS pH 7.35 (7.35-7.45)
[2023-07-05] MEDS ORDERED: Sodium Bicarbonate/Water,Steri 1,150 ML IV SCH (12:00)
--- NOTE | 2023-07-05 16:42 | NUR ---
PT UNABLE TO URINATE TODAY, BLADDER SCAN DONE. 250ML OF URINE IN BLADDER. DR SELBY AWARE.
[2023-07-05] MEDS ORDERED: Furosemide 100 MG/10 ML VIAL IV ONE (17:30)
[2023-07-05] MEDS ORDERED: SODIUM CHLORIDE IV ONE (17:45)
[2023-07-05] MEDS ORDERED: FUROSEMIDE 160 MG IV ONE (17:45)
--- NOTE | 2023-07-05 20:03 | NUR ---
1930 16 FR WILSON PLACED AFTER CLEANING METHODS BY PROTOCOL, 10CC SALINE INFLATED IN BALLOON. INSERTION COMPLETE 300 CC RESIDUAL RECORDED
[2023-07-06] VITALS (1203 sets, daily range): BP systolic 76–134; BP diastolic 44–73; PULSE 82–112; TEMP 96.6–97.8; O2SAT 84–100
[2023-07-06 04:20] LABS: MEAN CELL VOLUME 80 fl (80.0-100.0); MEAN CORPUSCULAR HGB CONC 31 g/dl (33.0-37.0); MEAN PLATELET VOLUME 9.5 fl (7.4-10.4); PLATELET COUNT 168 K/mm3 (130-400); RED BLOOD COUNT 2.86 M/mm3 (4.20-5.60); REDCELL DISTRIBUTION WIDTH-CV 19.1 % (11.5-14.5)
[2023-07-06 04:27] LABS: HEMOGLOBIN 7.2 g/dl (13.5-18.0); MEAN CORPUSCULAR HEMOGLOBIN 25 pg (27-31)
[2023-07-06 04:39] LABS: ALBUMIN 1.4 gm/dL (3.5-5.0); BILIRUBIN,TOTAL 0.8 mg/dL (0.2-1.2); CREATININE, serum 4.2 mg/dL (0.72-1.25); POTASSIUM 3.9 mmol/L (3.5-4.5); TOTAL PROTEIN 4.2 gm/dL (6.2-8.1)
[2023-07-06 04:41] LABS: ANISOCYTOSIS 2+; BAND 33 % (0-10); LYMPHOCYTE 2 % (20.0-51.0); NEUTROPHILS 62 % (42.0-75.2); PLATELET ESTIMATE NORMAL (NORMAL)
--- NOTE | 2023-07-06 07:23 | NUR ---
PATIENT SLEEPINTG IN BED. RIGHT IJ CENTRAL LINE IN PLACE WITH LEVOPHED RUNNING. WILSON CATHETER IN PLACE AND DRAINING. PATIENT ON 4L NASAL CANNULA. NO ACUTE EVENTS OVERNIGHT.
[2023-07-06] MEDS ORDERED: NS 1,000 ML IV SCH (10:15)
[2023-07-06] MEDS ORDERED: Furosemide 100 MG/10 ML VIAL IV ONE (17:00)
[2023-07-06] MEDS ORDERED: SODIUM CHLORIDE IV ONE (17:15)
[2023-07-06] MEDS ORDERED: FUROSEMIDE 160 MG IV ONE (17:15)
--- NOTE | 2023-07-06 19:15 | NUR ---
REPORT RECEIVED FROM TRISTAN CLARK AND TRISTAN ZAYAS. PATIENT RESTING IN BED WATCHING TV WITH FAMILY AT BEDSIDE. PATIENT ON LEVOPHED TO HELP MAINTAIN BLOOD PRESSURE. DISCUSSED WITH DAYSHIFT RN PATIENT'S INTERMITTENT CONFUSION WELL. PATIENT AND FAMILY HAVE NO COMPLAINTS AT THIS TIME.
[2023-07-07] VITALS (1088 sets, daily range): BP systolic 73–116; BP diastolic 49–73; PULSE 72–130; TEMP 97.2–97.6; O2SAT 79–100
[2023-07-07 04:27] LABS: MEAN CELL VOLUME 78 fl (80.0-100.0); MEAN CORPUSCULAR HGB CONC 32 g/dl (33.0-37.0); MEAN PLATELET VOLUME 9.6 fl (7.4-10.4); PLATELET COUNT 202 K/mm3 (130-400); RED BLOOD COUNT 3.42 M/mm3 (4.20-5.60); REDCELL DISTRIBUTION WIDTH-CV 19.2 % (11.5-14.5)
[2023-07-07 04:41] LABS: CALCIUM 8.5 mg/dL (8.4-10.2)
[2023-07-07 04:53] LABS: HEMATOCRIT 26.8 % (42.0-52.0); HEMOGLOBIN 8.5 g/dl (13.5-18.0); MEAN CORPUSCULAR HEMOGLOBIN 25 pg (27-31)
[2023-07-07 05:58] LABS: ANISOCYTOSIS 3+; BAND 18 % (0-10); HYPOCHROMIA 1+; LYMPHOCYTE 3 % (20.0-51.0); NEUTROPHILS 79 % (42.0-75.2); OVALOCYTES 1+; PLATELET ESTIMATE NORMAL (NORMAL)
[2023-07-07] MEDS ORDERED: ROXICODONE 55 MG/TAB PO (12:46)
--- NOTE | 2023-07-07 13:01 | NUR ---
Australian Rules Footballer faxed clinical updates to [facility]. Per progress notes, patient desires to continue with agressive treatment.
[2023-07-07] MEDS ORDERED: Amiodarone 450 MG in D5W Excel 250 ML IV SCH ×2 (13:30→19:30)
[2023-07-07] MEDS ORDERED: Albumin (Human) 100 ML IV ONE (13:45)
[2023-07-07] MEDS ORDERED: Furosemide 100 MG/10 ML VIAL IV ONE (13:45)
[2023-07-07] MEDS ORDERED: FUROSEMIDE 160 MG IV ONE (14:30)
[2023-07-07] MEDS ORDERED: SODIUM CHLORIDE IV ONE (14:30)
--- NOTE | 2023-07-07 15:30 | NUR ---
PATIENT IS PLEASANT AND HAS BEEN MOTIVATED TO WORK WITH THERAPY TODAY. PATIENT REMAINS ON LEVOPHED. AMIODARONE WAS STARTED DUE TO PATIENT CONVERTING INTO AFIB RVR AT NOON. PATIENT/FAMILY HAVE NO PRESENT QUESTIONS OR CONCERNS.
--- NOTE | 2023-07-07 19:30 | NUR ---
REPORT RECEIVED FROM TRISTAN KULKARNI. PATIENT RESTING IN BED WATCHING TV WITH FAMILY AT BEDSIDE. LEVOPHED AND AMIO ARE CURRENTLY RUNNING AT THIS TIME VIA CENTRAL LINE.
[2023-07-08] VITALS (1121 sets, daily range): BP systolic 71–132; BP diastolic 42–79; PULSE 80–115; TEMP 97.1–97.5; O2SAT 73–100
[2023-07-08 05:35] LABS: MEAN CELL VOLUME 78 fl (80.0-100.0); MEAN CORPUSCULAR HGB CONC 32 g/dl (33.0-37.0); MEAN PLATELET VOLUME 9.7 fl (7.4-10.4); PLATELET COUNT 197 K/mm3 (130-400); RED BLOOD COUNT 3.32 M/mm3 (4.20-5.60); REDCELL DISTRIBUTION WIDTH-CV 19.4 % (11.5-14.5)
[2023-07-08 05:37] LABS: HEMATOCRIT 25.9 % (42.0-52.0); HEMOGLOBIN 8.3 g/dl (13.5-18.0); MEAN CORPUSCULAR HEMOGLOBIN 25 pg (27-31)
[2023-07-08 05:45] LABS: BILIRUBIN,TOTAL 0.5 mg/dL (0.2-1.2); CREATININE, serum 3.91 mg/dL (0.72-1.25); POTASSIUM 3.6 mmol/L (3.5-4.5)
[2023-07-08 05:54] LABS: BAND 5 % (0-10); LYMPHOCYTE 2 % (20.0-51.0); NEUTROPHILS 93 % (42.0-75.2)
[2023-07-08 05:55] LABS: ANISOCYTOSIS 2+; HYPOCHROMIA 1+; MICROCYTOSIS 1+; PLATELET ESTIMATE NORMAL (NORMAL); TARGET CELLS 1+
[2023-07-08 05:56] LABS: SCHISTOCYTES 1+
[2023-07-08] MEDS ORDERED: Amiodarone 200 MG TAB PO SCH (11:00)
--- NOTE | 2023-07-08 11:25 | NUR ---
Bag Worker spoke with Maura Director Women at [facility] (ph#[phone]) to provide update.
[2023-07-08] MEDS ORDERED: Albumin (Human) 100 ML IV SCH (15:00)
[2023-07-09] VITALS (1161 sets, daily range): BP systolic 85–127; BP diastolic 58–80; PULSE 75–146; TEMP 96.3–98; O2SAT 87–100
[2023-07-09 05:21] LABS: MEAN CELL VOLUME 79 fl (80.0-100.0); MEAN CORPUSCULAR HGB CONC 31 g/dl (33.0-37.0); MEAN PLATELET VOLUME 10.2 fl (7.4-10.4); PLATELET COUNT 172 K/mm3 (130-400); RED BLOOD COUNT 2.98 M/mm3 (4.20-5.60); REDCELL DISTRIBUTION WIDTH-CV 19.2 % (11.5-14.5)
[2023-07-09 05:26] LABS: HEMATOCRIT 23.4 % (42.0-52.0); HEMOGLOBIN 7.3 g/dl (13.5-18.0); MEAN CORPUSCULAR HEMOGLOBIN 24 pg (27-31)
[2023-07-09 05:32] LABS: ALBUMIN 2.2 gm/dL (3.5-5.0); BILIRUBIN,TOTAL 0.5 mg/dL (0.2-1.2); CALCIUM 8.2 mg/dL (8.4-10.2); CREATININE, serum 3.64 mg/dL (0.72-1.25); MAGNESIUM 1.7 mg/dL (1.6-2.6); POTASSIUM 3.2 mmol/L (3.5-4.5); TOTAL PROTEIN 4.9 gm/dL (6.2-8.1)
[2023-07-09 06:01] LABS: ANISOCYTOSIS 2+; BAND 7 % (0-10); HYPOCHROMIA 2+; LYMPHOCYTE 3 % (20.0-51.0); MICROCYTOSIS 1+; NEUTROPHILS 87 % (42.0-75.2); PLATELET ESTIMATE NORMAL (NORMAL); SCHISTOCYTES 1+; TARGET CELLS 1+
[2023-07-09] MEDS ORDERED: Potassium Bicarbonate/Citrate 20 MEQ Effervescent TAB PO ONE (11:15)
[2023-07-09] MEDS ORDERED: Potassium Bicarbonate/Citrate 20 MEQ Effervescent TAB PO SCH (11:15)
[2023-07-09] MEDS ORDERED: *Potassium Replacement Protocol MC SCH (11:15)
[2023-07-09] MEDS ORDERED: Gabapentin 100 MG CAP PO SCH (11:38)
--- NOTE | 2023-07-09 13:45 | NUR ---
Railway Track Plant Operator spoke with June at [facility] and gave referral to inquire if patient would meet criteria for LTACH.
[2023-07-10] VITALS (555 sets, daily range): BP systolic 94–119; BP diastolic 36–64; PULSE 84–95; TEMP 96.4–97.9; O2SAT 71–99
[2023-07-10 05:41] LABS: MEAN CELL VOLUME 79 fl (80.0-100.0); MEAN CORPUSCULAR HGB CONC 31 g/dl (33.0-37.0); MEAN PLATELET VOLUME 10.2 fl (7.4-10.4); PLATELET COUNT 138 K/mm3 (130-400); RED BLOOD COUNT 2.94 M/mm3 (4.20-5.60); REDCELL DISTRIBUTION WIDTH-CV 19.2 % (11.5-14.5)
[2023-07-10 05:57] LABS: CALCIUM 8.3 mg/dL (8.4-10.2); CREATININE, serum 3.27 mg/dL (0.72-1.25); POTASSIUM 3.6 mmol/L (3.5-4.5)
[2023-07-10 06:01] LABS: HEMATOCRIT 23.1 % (42.0-52.0); HEMOGLOBIN 7.2 g/dl (13.5-18.0); MEAN CORPUSCULAR HEMOGLOBIN 24 pg (27-31)
[2023-07-10 06:17] LABS: BAND 8 % (0-10); LYMPHOCYTE 5 % (20.0-51.0); NEUTROPHILS 82 % (42.0-75.2)
[2023-07-10 06:18] LABS: ANISOCYTOSIS 2+; HYPOCHROMIA 2+; MICROCYTOSIS 1+; PLATELET ESTIMATE DECREASED (NORMAL); SCHISTOCYTES 1+; TARGET CELLS 1+
--- NOTE | 2023-07-10 07:00 | NUR ---
Report received from TRISTAN Valentine. Pt slept well throughout the night; only woke up to have BM. Pt appears to be sleeping at this time; no s/s discomfort. RIJ TLC; saline locked with no meds infusing. FC to dependent drainage. Call light in reach and bed alarm on.
--- NOTE | 2023-07-10 13:36 | NUR ---
Pt being transfered to room 323 at this time. Pt being transfered by TRISTAN Canales. Phone report given to TRISTAN Stauffer. Pts son and present during transfer and have possession of all belongings. Telemetry box placed on pt prior to transfer.
--- NOTE | 2023-07-10 14:00 | NUR ---
ANA MARIA ARRIVED TO UNIT IN STABLE CONDITION. O2 @ 3LNC, O2 SAT 95%. FALL PRECAUTIOSN IN PLACE. CALL LIGHT WITHIN REACH. PATIENTS SON AND AT BEDSIDE.
--- NOTE | 2023-07-10 14:15 | NUR ---
Kettle Tender spoke with June at [facility] who advised patient may meet criteria and that they would have to submit for auth through [facility]. AASHISH spoke with Hospitalist who advised patient has been weaned off the levophed and could potentially discharge home tomorrow. AASHISH updated June at [facility] and Karen with [facility].
--- NOTE | 2023-07-10 15:46 | NUR ---
WILSON CATHETER DISCONTINUED WITH NO ISSUE. PATIENT TOLERATED WELL. STILL AT BEDSIDE. FALL PRECAUTIONS IN PLACE. CALL LIGHT WITHIN REACH.
--- NOTE | 2023-07-10 17:45 | NUR ---
PATIENT AWAKE AND ALERT, SITTING UP IN BED. PATIENTS AT BEDSIDE, CALL LIGHT WITHIN REACH. PATIENT DENIES ANY NEEDS OR COMPLAINTS AT THIS TIME. FALL PRECAUTIONS IN PLACE.
[2023-07-11] VITALS (11 sets, daily range): BP systolic 101–120; BP diastolic 46–59; PULSE 91–106; TEMP 97.3–99.2
--- NOTE | 2023-07-11 01:50 | NUR ---
NURSING SHIFT ASSESSMENT COMPLETED. THE PATIENT WAS ALERT AND ORIENTED. PATIENTS SPOUSE AT BEDSIDE. UPON A RECHECK OF THE PATIENTS OXYGEN SATS HIS SPO2 WAS 84% ON 2LPM PER NC. THE PATIENT WAS PLACED ON AN OXY PLUS MASK AT 5 LPM AND THE PTS OXYGEN SATURATION WAS 95% RT NOTIFIED. THE PATIENT IS A MOUTH BREATHER AND HIS BREATHS ARE SHALLOW. EDUCATION WAS PROVIDED REGARDING DEEP BREATHING AND COUGHING. THE PATIENT VERBALIZED UNDERSTANDING. QUESTIONS AND CONCERNS ADDRESSED. THE PLAN OF CARE AND EVENING MEDS REVIEWED. CALL LIGHT AND PERSONAL BELONGINGS WITHIN REACH. BED ALARM ON. BED IN LOW POSITION.
[2023-07-11 06:25] LABS: MEAN CELL VOLUME 80 fl (80.0-100.0); MEAN CORPUSCULAR HGB CONC 31 g/dl (33.0-37.0); MEAN PLATELET VOLUME 10.5 fl (7.4-10.4); PLATELET COUNT 129 K/mm3 (130-400); RED BLOOD COUNT 2.79 M/mm3 (4.20-5.60)
[2023-07-11 06:32] LABS: HEMATOCRIT 22.2 % (42.0-52.0); MEAN CORPUSCULAR HEMOGLOBIN 25 pg (27-31)
[2023-07-11 06:33] LABS: HEMOGLOBIN 6.9 g/dl (13.5-18.0)
[2023-07-11 06:38] LABS: CALCIUM 8.6 mg/dL (8.4-10.2); CREATININE, serum 2.83 mg/dL (0.72-1.25); MAGNESIUM 1.6 mg/dL (1.6-2.6); POTASSIUM 3.5 mmol/L (3.5-4.5)
[2023-07-11 07:01] LABS: ANISOCYTOSIS 2+; BAND 13 % (0-10); LYMPHOCYTE 5 % (20.0-51.0); NEUTROPHILS 78 % (42.0-75.2); PLATELET ESTIMATE DECREASED (NORMAL); POIKILOCYTOSIS 2+
[2023-07-11 07:02] LABS: MICROCYTOSIS 1+
[2023-07-11 07:03] LABS: SCHISTOCYTES 1+
[2023-07-11] MEDS ORDERED: Potassium Chloride 100 ML IV ONE (07:30)
--- NOTE | 2023-07-11 07:40 | NUR ---
AT 06:33 LAB CALLED WITH A HGB 6.9. DR. GRISSOM NOTIFIED AT 07:39. NO NEW ORDERS AT THIS TIME.
--- NOTE | 2023-07-11 07:53 | NUR ---
25MCG FENTANYL PATCH ON RIGHT UPPER CHEST VERIFIED WITH ON COMING RN Lynn THOMAS
--- NOTE | 2023-07-11 08:15 | NUR ---
Pt was up a couples times this am. He did have an incontinent bowel movement at shift change. Sponge bath given, linens changed and mepilex dressing on bottom changed. Pt O2 was in the low 80's, bumped O2 up to 6L to gets sats at 92% via oxymask
--- NOTE | 2023-07-11 10:27 | NUR ---
Pt resting with eyes closed, even non labored breathing. I did wake pt to start blood. Consent was signed by his . Pts son is also present in the room. Blood recently started, staying with pt for 15 minutes to monitor
--- NOTE | 2023-07-11 10:46 | NUR ---
Pt continues to sleep through blood transfusion. He does wake easily when I need to take temp. Pt and son continue to be at bedside
--- NOTE | 2023-07-11 11:30 | NUR ---
Assisted pt up to the chair. Pt O2 has remained right at 90%. He did want to use the nasal cannula so that he can work on incentive spirometer. Educated that he needs to concentrate on breathing through his nose and out his mouth. Pts is at bedside at this time. Pt is working on IS at this time. Blood continues to infuse with no signs of reaction
--- NOTE | 2023-07-11 12:41 | NUR ---
Pt sitting up in chair. He has continued to work on IS. Pt has also been concentrating on his breathing. O2 is now up to 96% per NC.
[2023-07-11 13:38] LABS: HEMATOCRIT 24.8 % (42.0-52.0); HEMOGLOBIN 7.9 g/dl (13.5-18.0)
--- NOTE | 2023-07-11 14:01 | NUR ---
Patient is requiring 6-7 liters of oxygen today and is not ready for discharge. SW updated Karen at [facility] and faxed clinical updates. Discharge Plan; Home with [facility]
[2023-07-11] MEDS ORDERED: Furosemide 100 MG/10 ML VIAL IV ONE (14:45)
[2023-07-11] MEDS ORDERED: SODIUM CHLORIDE IV ONE (15:00)
[2023-07-11] MEDS ORDERED: FUROSEMIDE 160 MG IV ONE (15:00)
--- NOTE | 2023-07-11 15:57 | NUR ---
Pt continues to rest with his eyes closed, even non labored breathing. at bedside. No needs at this time
--- NOTE | 2023-07-11 16:42 | NUR ---
Recently assisted pt up to the restroom. He did have small loose stool and voided. Once getting him back to bed, pt stated that he was feeling winded. O2 sat was 85% on 6L and heart rate was 150. Once pt rested for a few minutes, O2 came up to 90%. Heart rate down to upper 130s. Tele then called that pt was in afib. Notified Akiko KIM
[2023-07-11] MEDS ORDERED: Digoxin 0.25 MG/ML 2 ML VIAL IV ONE (17:00)
--- NOTE | 2023-07-11 17:10 | NUR ---
Called pharmacy to verify digoxin, pharmacist not available, attending to another code at this time
[2023-07-11] MEDS ORDERED: cefTRIAXone 1 G in Water For Injection,Sterile 10 ML IV SCH (18:00)
[2023-07-11] MEDS ORDERED: metroNIDAZOLE 100 ML IV SCH (18:00)
--- NOTE | 2023-07-11 18:00 | NUR ---
Pt heart rate in the 140s-150s prior to giving dig. Pt heart rate now low 100s and back in NSR. Pt and son at bedside. Pt has yet to order his dinner.
--- NOTE | 2023-07-11 19:07 | NUR ---
BEDSIDE REPORT RECEIVED FROM WILLIAM HUDSON. PATIENT IS SITTING UP IN CHAIR, ALERT AND ORIENTED. FAMILY AT BEDSIDE. PATIENT DENIES NEEDS OR CONCERNS AT THIS TIME. WILL MONITOR.
--- NOTE | 2023-07-11 21:04 | NUR ---
PATIENT RESTING IN BED. ALERT AND ORIENTED. AT BEDSIDE. SHIFT ASSESSMENT COMPLETE. MIPLEX DRSG TO COCCYX. CDI. R IJ DRSG CDI. TELEMETRY ON. PATIENT DENIES PAIN OR DISCOMORT. FALL PRECAUTIONS IN PLACE. WILL MONITOR
--- NOTE | 2023-07-12 01:00 | NUR ---
PATIENT RESTING IN BED WITH EYES CLOSED. PATIENT DENIES PAIN OR DISCOMFORT AT THIS TIME. WILL MONITOR
[2023-07-12 03:28] VITALS: BP 120/51; PULSE 112; TEMP 98.1
--- NOTE | 2023-07-12 04:15 | NUR ---
PATIENT HAD EPISODE OF INCONTIENT LOOSE STOOL AND URINE. NEW MIPLEX DRSG APPLIED TO COCCYX. PATIENT ON 6L OF VIA HIGH FLOW NC. PATIENT DENIES NO PAIN OR DISCOMFORT AT THIS TIME.
[2023-07-12 06:52] LABS: MEAN CELL VOLUME 80 fl (80.0-100.0); MEAN CORPUSCULAR HGB CONC 32 g/dl (33.0-37.0); MEAN PLATELET VOLUME 9.8 fl (7.4-10.4); PLATELET COUNT 118 K/mm3 (130-400); REDCELL DISTRIBUTION WIDTH-CV 18.6 % (11.5-14.5)
[2023-07-12 07:00] LABS: HEMATOCRIT 23.2 % (42.0-52.0); HEMOGLOBIN 7.4 g/dl (13.5-18.0); MEAN CORPUSCULAR HEMOGLOBIN 26 pg (27-31)
[2023-07-12 07:03] LABS: CALCIUM 8.7 mg/dL (8.4-10.2); CREATININE, serum 2.78 mg/dL (0.72-1.25); POTASSIUM 3.3 mmol/L (3.5-4.5)
[2023-07-12 07:26] VITALS: BP 102/48; PULSE 100; TEMP 98
[2023-07-12] MEDS ORDERED: Potassium Bicarbonate/Citrate 20 MEQ Effervescent TAB PO ONE ×2 (07:45→16:15)
[2023-07-12 07:57] LABS: BAND 38 % (0-10); LYMPHOCYTE 5 % (20.0-51.0); NEUTROPHILS 54 % (42.0-75.2)
[2023-07-12 07:58] LABS: ANISOCYTOSIS 2+; HYPOCHROMIA 1+; PLATELET ESTIMATE NORMAL (NORMAL)
--- NOTE | 2023-07-12 08:00 | NUR ---
pt a&ox3 resting in bed. meds given and assessment complete. vss amd tele in place. BGL 111, no insulin required per SS. pt on 7L nasal cannula, denies feeling sob. pt denying pain. pt on contact precautions for cdiff. mepilex to coccyx is cdi. pt has +2 pitting edema to ble. potassium replaced per protocol. assissted pt to recliner, gait steady with walker. IJ to right chest flushes well w good blood return. fall precautions in place. pt denies needs at this time. call light in reach.
[2023-07-12 11:05] VITALS: BP 117/62; PULSE 97; TEMP 97.9
--- NOTE | 2023-07-12 12:14 | NUR ---
Data: Director Private visit declined by Patient's visitor. Assessment: Patient's Pastoral Staff from the [facility] have visited and provided spiritual care to Patient. Plan of Care: Chaplains will be available if requested while Patient is admitted to this hospital.
--- NOTE | 2023-07-12 12:24 | NUR ---
o2 demands decreased to 6L nasal cannula, saturations ranging from 90-93%. pt denies feeling sob. no other needs at this time. family at bedside. call light in reach.
[2023-07-12] MEDS ORDERED: Vancomycin 125 MG CAP PO SCH (15:00)
[2023-07-12 15:48] VITALS: BP 106/55; PULSE 99; TEMP 97.6
--- NOTE | 2023-07-12 15:53 | NUR ---
assissted pt to bathroom, gait steady with walker. pt 02 dropped to 76% on 7L nasal cannula. pt back to bed, 02 back up to 91%.
[2023-07-12] MEDS ORDERED: Furosemide 100 MG/10 ML VIAL IV ONE (16:15)
[2023-07-12 19:43] VITALS: BP 115/56; PULSE 95; TEMP 97.7
--- NOTE | 2023-07-12 20:12 | NUR ---
Patient assessed at this time, see shift assessment, A/Ox4, supportive family at bedside, still on 7LPM via HFNC, oxygen saturation of 93%, denies SOA at this time, still with TLC to right neck, flushes well with good blood return, fentanyl patch to left chest, dressing to bottom CDI, reports back pain, requested oxycodone in an hour, denies further needs, call light and personal items within reach, will continue to monitor.
[2023-07-12 23:30] VITALS: BP 113/53; PULSE 97; TEMP 98.5
[2023-07-13 04:22] VITALS: BP 119/50; PULSE 191; PULSE 91; TEMP 98.8
[2023-07-13 07:13] VITALS: BP 111/53; PULSE 101; TEMP 98.2
[2023-07-13 07:57] LABS: MEAN CELL VOLUME 82 fl (80.0-100.0); MEAN CORPUSCULAR HGB CONC 30 g/dl (33.0-37.0); MEAN PLATELET VOLUME 10.1 fl (7.4-10.4); PLATELET COUNT 128 K/mm3 (130-400); RED BLOOD COUNT 2.81 M/mm3 (4.20-5.60); REDCELL DISTRIBUTION WIDTH-CV 18.9 % (11.5-14.5)
[2023-07-13 08:03] LABS: MEAN CORPUSCULAR HEMOGLOBIN 25 pg (27-31)
[2023-07-13 08:20] LABS: CALCIUM 8.8 mg/dL (8.4-10.2); CREATININE, serum 2.72 mg/dL (0.72-1.25); MAGNESIUM 1.3 mg/dL (1.6-2.6)
[2023-07-13 08:35] LABS: BAND 31 % (0-10); LYMPHOCYTE 4 % (20.0-51.0); NEUTROPHILS 62 % (42.0-75.2)
[2023-07-13 08:36] LABS: PLATELET ESTIMATE DECREASED (NORMAL)
[2023-07-13 08:37] LABS: HYPOCHROMIA 1+
[2023-07-13] MEDS ORDERED: Potassium Bicarbonate/Citrate 20 MEQ Effervescent TAB PO ONE (08:45)
[2023-07-13] MEDS ORDERED: Potassium Bicarbonate/Citrate 20 MEQ Effervescent TAB PO SCH (09:00)
--- NOTE | 2023-07-13 09:20 | NUR ---
pt a&ox3 resting in bed, son at bedside. vss and tele in place. pt reports some pain in his back, wanting to trasfer to recliner to see if it provides some relief. pt remains on 7L nasal cannula. potassium replaced per protocol. mepilex to coccyx cdi. fentanyl patch in place to left chest. +2 pitting edema to ble. IJ to right neck flushes well w good blood return. assissted pt to recliner for breakfast. no needs at this time. call light in reach.
[2023-07-13] MEDS ORDERED: Magnesium Sulfate 4% 50 ML IV ONE (09:45)
[2023-07-13 11:19] VITALS: BP 102/48; PULSE 102; TEMP 98.4
--- NOTE | 2023-07-13 12:09 | NUR ---
SW informed that patient and family requested to speak to [facility] retail wireless sales representative to discuss their services. SW contacted [facility], respresetative requested information and provided she will be calling patient and spouse to answer questions accordingly.
[2023-07-13 15:29] VITALS: BP 115/56; PULSE 100; TEMP 97.6
[2023-07-13 19:28] VITALS: BP 118/54; PULSE 96; TEMP 97.7
--- NOTE | 2023-07-13 20:31 | NUR ---
Patient resting in bed, at bedside, patient reports his pain isn't bad for now, reminded to call whenever pain increases, still with triple lumen catheter, dressing changed at this time, 3 lumens flushes well with good blood return, remains on 7LPM via HFNC, satting 94%, dressing to bottom CDI, denies further needs, call light and personal items within reach, will continue to monitor.
[2023-07-13 23:28] VITALS: BP 109/64; PULSE 94; TEMP 97.8
[2023-07-14] VITALS (13 sets, daily range): BP systolic 106–123; BP diastolic 36–67; PULSE 89–102; TEMP 96.9–97.9
--- NOTE | 2023-07-14 00:09 | NUR ---
Patient called and reports he is anxious, PRN zyprexa given at this time, will continue to monitor, daughter at bedside.
[2023-07-14] MEDS ORDERED: LORazepam 2 MG/ML 1 ML VIAL IV ONE (00:45)
--- NOTE | 2023-07-14 01:24 | NUR ---
Patient getting anxious and wanted to sleep and wanted an IV shot to help him sleep, called Di and made her aware, received an order for ativan IV and given.
--- NOTE | 2023-07-14 04:00 | NUR ---
Patient's daughter reports the IV ativan that was given helped for his anxiety, satting 91%, remains on 7LPM via HFNC.
[2023-07-14 06:51] LABS: MEAN CELL VOLUME 81 fl (80.0-100.0); MEAN CORPUSCULAR HGB CONC 32 g/dl (33.0-37.0); PLATELET COUNT 116 K/mm3 (130-400); RED BLOOD COUNT 2.84 M/mm3 (4.20-5.60); REDCELL DISTRIBUTION WIDTH-CV 19.1 % (11.5-14.5)
[2023-07-14 06:56] LABS: HEMATOCRIT 23.1 % (42.0-52.0); HEMOGLOBIN 7.3 g/dl (13.5-18.0); MEAN CORPUSCULAR HEMOGLOBIN 26 pg (27-31)
--- NOTE | 2023-07-14 07:07 | NUR ---
Took report from TRISTAN Dee at 0500. Pt resting with eyes closed during report. Shortly after I did wake pt for morning medications and line draw. Pt had no complaints or needs. Around 0600 pt rang stating that he just feels short of air. Pt O2 was 87% on 7L high flow. I did notify RT and increase O2 per their recommendation to 8.5L. I also notified Wale Goins of this as pt does not have any morphine or ativan to be given.
[2023-07-14 07:26] LABS: CALCIUM 8.9 mg/dL (8.4-10.2); CREATININE, serum 2.3 mg/dL (0.72-1.25); MAGNESIUM 1.6 mg/dL (1.6-2.6); POTASSIUM 3.3 mmol/L (3.5-4.5)
[2023-07-14 08:14] LABS: ANISOCYTOSIS 3+; BAND 17 % (0-10); EOSINOPHIL 1 % (0-4); HYPOCHROMIA 2+; LYMPHOCYTE 6 % (20.0-51.0); NEUTROPHILS 75 % (42.0-75.2); OVALOCYTES 1+; PLATELET ESTIMATE NORMAL (NORMAL)
[2023-07-14] MEDS ORDERED: LORazepam 2 MG/ML 1 ML VIAL IV PRN (08:45)
[2023-07-14] MEDS ORDERED: Morphine Oral Concentrate 20 MG/ML UD SL PRN (08:45)
[2023-07-14] MEDS ORDERED: LORazepam 0.5 MG TAB PO PRN (08:45)
[2023-07-14] MEDS ORDERED: PROAMATINE10 MG PO (14:27)
[2023-07-14] MEDS ORDERED: NEURONTIN100 MG/CAP PO (14:28)
[2023-07-14] MEDS ORDERED: CORTEF 20MG TAB20 MG PO (14:33)
[2023-07-14] MEDS ORDERED: LEVEMIR FLEX100 U/ML SQ (14:37)
--- NOTE | 2023-07-14 15:15 | NUR ---
PT HAD EPISODE OF AFIB RVR REPORTED BY TELE, DR. GRISSOM NOTIFIED.
--- NOTE | 2023-07-14 15:38 | NUR ---
Import Dispatcher met with patient, his , and son at bedside to follow up on discharge planning. Patient has decided he would like to go to the [facility]. Patient's , Brendan has talked with José, Director this morning. AASHISH contacted José and provided clinical records. José followed up with AASHISH and advised they can accept patient tomorrow. AASHISH contacted [facility] and scheduled transport for tomorrow at 1030. AASHISH provided transport time to José Cardona at [facility], RN, and Hospitalist. Discharge Plan: [facility]
--- NOTE | 2023-07-14 23:25 | NUR ---
shift assessment complete, see documentation. pt tolerated hs meds well. pt struggled to wake up tonight and reports he is very tired. once awake, pt is a&o x4. c-diff precautions remain in place. pt repositioned q2h. at bedside. fall precautions in place. call light in reach. all needs met at this time.
[2023-07-15 01:04] VITALS: BP_SYST 114
[2023-07-15 03:47] VITALS: BP 112/59; PULSE 92; TEMP 96.7
[2023-07-15 04:20] VITALS: BP_SYST 112
--- NOTE | 2023-07-15 05:06 | NUR ---
pt doing ok. pt up to commode this morning but struggling to catch his breath once back in bed. pt tolerated am meds well. fall precautions in place. call light in reach. all needs met at this time.
[2023-07-15 07:15] VITALS: BP 115/53; PULSE 100; TEMP 97.9
--- NOTE | 2023-07-15 08:25 | NUR ---
PT RESTING IN BED. DR. ANN IN ROUNDING ON PT THIS AM. PLAN ON TRANSFER TO HOSPICE HOUSE @1030 THIS AM.
[2023-07-15] MEDS ORDERED: VANCOCIN H125 MG/CAP PO (08:28)
[2023-07-15] MEDS ORDERED: FLAGYL500 MG PO (08:28)
[2023-07-15] MEDS ORDERED: DULCOLAX S10 MG/SUPP RC (08:31)
[2023-07-15] MEDS ORDERED: TRANSDERM-0.5 MG/21 TD (08:31)
[2023-07-15] MEDS ORDERED: ATIVAN 1MG T1 MG/TAB PO (08:31)
[2023-07-15] MEDS ORDERED: SYSTANE 0.4%-0.1 SOL OU (08:31)
[2023-07-15] MEDS ORDERED: ROXANOL 20MG20 MG/ML SL (08:31)
[2023-07-15 09:00] VITALS: BP_SYST 115
--- NOTE | 2023-07-15 09:27 | NUR ---
REPORT CALLED TO SARAH HUDSON @ [facility].
--- NOTE | 2023-07-15 09:45 | NUR ---
Mobile Tester faxed discharge orders to [facility]. SW also provided report number to bedside RN. SW met with patient and his , Brendan who have no questions or concerns at this time. AASHISH placed completed EMS forms on patient's chart. [facility] is scheduled to shrimp picker at 1030. Discharge Plan: [facility]
--- NOTE | 2023-07-15 10:25 | NUR ---
RIJ CENTRAL LINE DISCONTINUED, PRESSURE HELD UNTIL HEMOSTASIS ACHIEVED. COMPLETE BED BATH PROVIDED AND CLEAN GOWN PLACED FOR PT. PT TOLERATED ALL PROCEEDURES WELL.
--- NOTE | 2023-07-15 10:49 | NUR ---
TRANSFER TO EMS TO [facility].
== END 2023-07-15 10:52 | disposition hospice, inpatient (51) | DRG 871 ==
LOC: COL.ER 16:20 → SURG 21:27 → ICU 21:27 → SURG 07-10 13:53
PROVIDERS: Hospitalist; Internal Medicine; Nurse Practitioner Primary Care; Physician Assistant; ADMIT Internal Medicine
PROC: 05HM33Z Insertion of Infusion Device into Right Internal Jugular Vein, Percutaneous Approach (ICD-10-PCS; principal; 2023-07-05)
PROC: 30233N1 Transfusion of Nonautologous Red Blood Cells into Peripheral Vein, Percutaneous Approach (ICD-10-PCS; 2023-07-11)
DX: A41.9 Sepsis, unspecified organism (principal); E43 Unspecified severe protein-calorie malnutrition; N17.0 Acute kidney failure with tubular necrosis; J69.0 Pneumonitis due to inhalation of food and vomit; R65.21 Severe sepsis with septic shock; J96.21 Acute and chronic respiratory failure with hypoxia; A04.72 Enterocolitis due to Clostridium difficile, not specified as recurrent; C64.9 Malignant neoplasm of unspecified kidney, except renal pelvis; C78.00 Secondary malignant neoplasm of unspecified lung; C79.51 Secondary malignant neoplasm of bone; E87.20 Acidosis, unspecified; Z66 Do not resuscitate; G89.3 Neoplasm related pain (acute) (chronic); I10 Essential (primary) hypertension; I48.91 Unspecified atrial fibrillation; E03.9 Hypothyroidism, unspecified; I07.1 Rheumatic tricuspid insufficiency; N40.0 Benign prostatic hyperplasia without lower urinary tract symptoms; E88.09 Other disorders of plasma-protein metabolism, not elsewhere classified; E11.9 Type 2 diabetes mellitus without complications; E87.6 Hypokalemia; E83.42 Hypomagnesemia; D64.9 Anemia, unspecified; G89.4 Chronic pain syndrome; R06.6 Hiccough; E86.0 Dehydration; Z68.23 Body mass index [BMI] 23.0-23.9, adult; Z79.4 Long term (current) use of insulin
CPT/HCPCS: A4314; C1751; J0282; J0696; J1160; J1170; J1644; J1720; J1815; J1836; J1940; J2060; J3010; J3475; J3480; J7030; J7040; J7060; P9040; P9047; Q3014